=== PATIENT | male | born 2000 | race Caucasian/White ===

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

== ENCOUNTER → 2023-02-09 | Outpatient (CLI) | payer BC, OTHER ==
[~2023-02-09] MED LIST changes: -ACET120S PO; +ACET125EL PO
[2023-02-09 10:25] LABS: BASO # 0.1 10^3/uL (0.0-0.2); BASO % 0.9 % (0.0-1.0); EOS # 0.1 10^3/uL (0.0-0.5); EOS % 0.8 % (0.0-3.0); HEMATOCRIT 47.2 % (42.0-52.0); HEMOGLOBIN 15.9 g/dl (13.5-17.5); LYMPH # 1.5 10^3/uL (1.5-5.0); LYMPH % 15.3 % (24.0-44.0); MEAN CORPUSCULAR HEMOGLOBIN 29.9 pg (27.0-33.0); MEAN CORPUSCULAR HGB CONC 33.7 g/dl (32.0-36.5); MEAN CORPUSCULAR VOLUME 88.9 fl (80.0-96.0); MONO # 0.9 10^3/uL (0.0-0.8); MONO % 9.1 % (2.0-8.0); NEUTROPHILS # 7.1 10^3/uL (1.5-8.5); NEUTROPHILS % 73.7 % (36.0-66.0); PLATELET COUNT, AUTOMATED 347 10^3/uL (150-450); RED BLOOD COUNT 5.31 10^6/uL (4.30-6.10); WHITE BLOOD COUNT 9.6 10^3/uL (4.0-10.0)
[2023-02-09 10:45] LABS: ERYTHROCYTE SEDIMENTATION RATE 18 mm/hr (0-15)
[2023-02-09 10:53] LABS: URIC ACID 6.1 MG/DL (3.7-9.2)
[2023-02-09 10:56] LABS: ALKALINE PHOSPHATASE 64 U/L (46-116); ALT/SGPT 43 U/L (7.0-40); AST/SGOT 32 U/L (<34); BILIRUBIN,TOTAL 0.6 MG/DL (0.3-1.2); BLOOD UREA NITROGEN 10 MG/DL (9-23); CALCIUM LEVEL 9.4 MG/DL (8.5-10.1); CARBON DIOXIDE LEVEL 28 MMOL/L (20-31); CHLORIDE LEVEL 106 MMOL/L (98-107); CREATININE FOR GFR 0.89 MG/DL (0.70-1.30); GLUCOSE, FASTING 93 MG/DL (60-100); POTASSIUM SERUM 4.8 MMOL/L (3.5-5.1); SODIUM LEVEL 140 MMOL/L (136-145); TOTAL PROTEIN 7.1 G/DL (5.7-8.2)
[2023-02-09 11:56] LABS: RHEUMATOID FACTOR QUANT < 3.5 IU/ML (<14)
== END ==
LOC: M LAB 08:59
PROVIDERS: ATTEND Student in an Organized Health Care Education/Training Program
DX: M25.50 Pain in unspecified joint (principal)

== ENCOUNTER → 2023-11-09 | Outpatient (CLI) | payer BC, OTHER ==
[2023-11-09 14:21] LABS: BASO # 0.1 10^3/uL (0.0-0.2); BASO % 0.9 % (0.0-1.0); EOS % 0.5 % (0.0-3.0); HEMATOCRIT 46.2 % (42.0-52.0); HEMOGLOBIN 15.3 g/dl (13.5-17.5); LYMPH # 2.7 10^3/uL (1.5-5.0); LYMPH % 32.3 % (24.0-44.0); MEAN CORPUSCULAR HEMOGLOBIN 29.9 pg (27.0-33.0); MEAN CORPUSCULAR HGB CONC 33.1 g/dl (32.0-36.5); MEAN CORPUSCULAR VOLUME 90.2 fl (80.0-96.0); MONO # 0.7 10^3/uL (0.0-0.8); NEUTROPHILS # 4.9 10^3/uL (1.5-8.5); NEUTROPHILS % 58.1 % (36.0-66.0); PLATELET COUNT, AUTOMATED 351 10^3/uL (150-450); RED BLOOD COUNT 5.12 10^6/uL (4.30-6.10); WHITE BLOOD COUNT 8.5 10^3/uL (4.0-10.0)
[2023-11-09 14:31] LABS: ERYTHROCYTE SEDIMENTATION RATE 11 mm/hr (0-15)
[2023-11-09 14:52] LABS: C REACTIVE PROTEIN QUANTITATIV < 0.40 MG/DL (<1.0)
[2023-11-09 14:54] LABS: ALBUMIN 4.2 G/DL (3.2-5.2); ALKALINE PHOSPHATASE 56 U/L (46-116); ALT/SGPT 30 U/L (7.0-40); AST/SGOT 23 U/L (<34); BILIRUBIN,TOTAL 0.3 MG/DL (0.3-1.2); BLOOD UREA NITROGEN 14 MG/DL (9-23); CALCIUM LEVEL 9.1 MG/DL (8.5-10.1); CARBON DIOXIDE LEVEL 30 MMOL/L (20-31); CHLORIDE LEVEL 105 MMOL/L (98-107); GLUCOSE, FASTING 96 MG/DL (60-100); SODIUM LEVEL 140 MMOL/L (136-145); TOTAL PROTEIN 7.3 G/DL (5.7-8.2)
[2023-11-10 12:08] LABS: SSA SJOGRENS A <0.2 AI (0.0-0.9); SSB SJOGRENS B <0.2 AI (0.0-0.9)
== END ==
LOC: M WUC 12:08
PROVIDERS: ATTEND Internal Medicine Rheumatology
DX: M35.3 Polymyalgia rheumatica (principal); R79.82 Elevated C-reactive protein (CRP)

== ENCOUNTER 2024-02-23 19:07 | Emergency (ER) | payer BC, OTHER ==
[~2024-02-23] VITALS: Ht 177.8 cm; Wt 110.2 kg
[2024-02-23 20:46] LABS: Trichomonas vaginalis (AMP) NOT DETECTED (NEGATIVE)
[2024-02-23 21:10] LABS: GC DNA AMPLIFICATION NEGATIVE (NEGATIVE)
[2024-02-23] MEDS ORDERED: IBUP-1022 PO (21:24)
[2024-02-23 22:33] VITALS: BP 129/79; TEMP 97.9; O2SAT 96
== END 2024-02-23 22:38 | disposition home or self-care (01) ==
LOC: M ED 19:07
DX: N45.1 Epididymitis (principal)

== ENCOUNTER → 2024-12-01 | Outpatient (CLI) | payer BC ==
[~2024-12-01] MED LIST changes: +IBUP-1022 PO
== END ==
LOC: M SOG 08:00
PROVIDERS: ATTEND Physician Assistant
DX: M25.521 Pain in right elbow (principal); M25.522 Pain in left elbow